=== PATIENT | male | born 1965 | race American Indian/Alaskan Native ===

== ENCOUNTER 2016-11-23 10:31 | Emergency (ER) | payer OTHER ==
[2016-11-23 10:50] VITALS: BP 160/106
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
--- NOTE | 2016-11-23 12:18 | XRay Report ---
LUMBOSACRAL SPINE, 3 VIEWS: History: Back pain Findings: The vertebral bodies, disk spaces and posterior elements are intact. No compression deformity or malalignment. The SI joints are symmetric and unremarkable. Impression: 1. No evidence for acute injury to the lumbar spine.
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
== END 2016-11-23 13:30 | disposition home or self-care (01) ==
LOC: ED 10:31
DX: M79.605 Pain in left leg (principal); R51 Headache; M54.5 Low back pain; E11.9 Type 2 diabetes mellitus without complications; J45.909 Unspecified asthma, uncomplicated
CPT/HCPCS: 70450; 72100

== ENCOUNTER 2020-12-02 14:16 | Emergency (ER) | payer SELFPAY ==
[2020-12-02 16:05] LABS: Basophils # (Auto) 0.1 K/mm3 (0.0-0.1); Basophils % (Auto) 0.7 % (0.0-1.8); Eosinophils # (Auto) 0.1 K/mm3 (0.0-0.4); Eosinophils % (Auto) 0.7 % (0.0-4.3); Hematocrit 43.7 % (35.5-45.6); Hemoglobin 14.3 gm/dl (11.8-15.2); Lymphocytes # (Auto) 1.8 K/mm3 (1.2-5.4); Lymphocytes % (Auto) 15.9 % (13.4-35.0); Mean Corpuscular HGB Conc 33 % (32-34); Mean Corpuscular Volume 93 fl (84-94); Monocytes # (Auto) 0.6 K/mm3 (0.0-0.8); Monocytes % (Auto) 5.4 % (0.0-7.3); Platelet Count 299 K/mm3 (140-440); Red Blood Count 4.72 M/mm3 (3.65-5.03); Red Cell Distribution Width 12.5 % (13.2-15.2)
[2020-12-02] MEDS ORDERED: MECLIZINE 25 MG TAB PO ONE (16:24)
[2020-12-02 16:29] LABS: Alanine Aminotransferase 25 units/L (7-56); Albumin 3.4 g/dL (3.9-5); Blood Urea Nitrogen 10 mg/dL (9-20); Calcium 8.9 mg/dL (8.4-10.2); Hemolysis Index 20
[2020-12-02 17:03] LABS: BUN/Creatinine Ratio 14
[2020-12-02] MEDS ORDERED: SODIUM CHLORIDE 0.9% 1000 ML 1,000 ML IV ONE ×2 (17:19)
[2020-12-02] MEDS ORDERED: INSULIN REGULAR, HUMAN 100 UNITS/1 ML IV ONE (17:21)
--- NOTE | 2020-12-02 17:37 | Emergency Department Report ---
ED General Adult HPI - General Chief complaint: Dizziness Stated complaint: DIZZINESS, RASH Time Seen by Provider: 12/02/20 15:31 Source: patient Mode of arrival: Ambulatory Limitations: No Limitations - History of Present Illness Initial comments: 55-year-old -[place] male patient presents with complaints of dizziness starting yesterday. He describes the dizziness as a room spinning type sensation and states it is mild. Patient denies any headache, vision changes, nausea/vomiting, recent head trauma, confusion, memory loss, numbness/tingl ing/weakness in his limbs, or difficulty with speech/ambulation. No prior history of vertigo per patient. He also denies any congestion or upper respiratory symptoms. His symptoms worsen with changes in his body position and turning his head. Past medical history includes hypertension. Patient reports his symptoms have improved since their onset -: Sudden - Related Data Previous Rx's Medication Instructions Recorded Last Taken Type hydrOXYzine HCL [Atarax] 25 mg PO Q6HR PRN #20 tablet 11/12/15 Unknown Rx methylPREDNISolone [Medrol] 4 mg PO QAM #1 dosepack 11/12/15 Unknown Rx Ibuprofen 800 mg PO Q8H PRN #20 tablet 11/23/16 Unknown Rx Meclizine [Antivert] 25 mg PO TID PRN #15 tablet 12/02/20 Unknown Rx Allergies Allergy/AdvReac Type Severity Reaction Status Date / Time codeine Allergy Unknown Verified 12/02/20 14:21 ED Review of Systems ROS: Stated complaint: DIZZINESS, RASH Other details as noted in HPI Constitutional: denies: chills, diaphoresis, fever, malaise, weakness Eyes: denies: vision change Respiratory: denies: cough, shortness of breath Cardiovascular: denies: chest pain, palpitations Gastrointestinal: denies: nausea, vomiting Neurological: denies: headache, weakness, numbness, paresthesias, confusion, abnormal gait ED Past Medical Hx - Past Medical History Hx Diabetes: Yes Hx Asthma: Yes (no meds, last attack 10 years ago) - Surgical History Additional Surgical History: Hernia repair - Social History Smoking Status: Never Smoker Substance Use Type: None - Medications Home Medications: Home Medications Medication Instructions Recorded Confirmed Last Taken Type hydrOXYzine HCL [Atarax] 25 mg PO Q6HR PRN #20 tablet 11/12/15 Unknown Rx methylPREDNISolone [Medrol] 4 mg PO QAM #1 dosepack 11/12/15 Unknown Rx Ibuprofen 800 mg PO Q8H PRN #20 tablet 11/23/16 Unknown Rx Meclizine [Antivert] 25 mg PO TID PRN #15 tablet 12/02/20 Unknown Rx ED Physical Exam - General Limitations: No Limitations General appearance: alert, in no apparent distress - Head Head exam: Present: atraumatic, normocephalic - Eye Eye exam: Present: normal appearance. Absent: scleral icterus - Neck Neck exam: Present: normal inspection, full ROM - Respiratory Respiratory exam: Present: normal lung sounds bilaterally. Absent: respiratory distress - Cardiovascular Cardiovascular Exam: Present: regular rate, normal rhythm - Extremities Exam Extremities exam: Present: full ROM - Neurological Exam Neurological exam: Present: alert, oriented X3, CN II-XII intact, normal gait. Absent: motor sensory deficit - Expanded Neurological Exam Expanded Cerebellar function: Finger to Nose: Normal, Heel to Mead: Normal, Romberg: Normal Sensory exam: Upper Extremity Light Touch: Normal, Lower Extremity Light Touch: Normal Motor strength exam: RUE: 4, LUE: 4, RLE: 4, LLE: 4 Best Eye Response ([place]): (4) open spontaneously Best Motor Response ([place]): (6) obeys commands Best Verbal Response ([place]): (5) oriented Kaci Total: 15 - Psychiatric Psychiatric exam: Present: normal affect, normal mood - Skin Skin exam: Present: warm, dry, intact, normal color. Absent: rash ED Course Vital Signs 12/02/20 12/02/20 14:21 16:31 Temperature 98.2 F Pulse Rate 98 H Pulse Rate [ 98 H Lying] Pulse Rate [ 103 H Sitting] Pulse Rate [ 110 H Standing] Respiratory 14 Rate Blood Pressure 124/84 [Lying] Blood Pressure 142/79 [Right] Blood Pressure 114/75 [Sitting] Blood Pressure 104/76 [Standing] O2 Sat by Pulse 100 Oximetry ED Medical Decision Making - Lab Data Result diagrams: 12/02/20 15:56 12/02/20 15:56 Lab Results 12/02/20 12/02/20 12/02/20 Range/Units 15:56 15:56 18:43 WBC 11.6 H (4.5-11.0) K/mm3 RBC 4.72 (3.65-5.03) M/mm3 Hgb 14.3 (11.8-15.2) gm/dl Hct 43.7 (35.5-45.6) % MCV 93 (84-94) fl MCH 30 (28-32) pg MCHC 33 (32-34) % RDW 12.5 L (13.2-15.2) % Plt Count 299 (140-440) K/mm3 Lymph % (Auto) 15.9 (13.4-35.0) % Piatt % (Auto) 5.4 (0.0-7.3) % Eos % (Auto) 0.7 (0.0-4.3) % Baso % (Auto) 0.7 (0.0-1.8) % Lymph # (Auto) 1.8 (1.2-5.4) K/mm3 Piatt # (Auto) 0.6 (0.0-0.8) K/mm3 Eos # (Auto) 0.1 (0.0-0.4) K/mm3 Baso # (Auto) 0.1 (0.0-0.1) K/mm3 Seg Neutrophils % 77.3 H (40.0-70.0) % Seg Neutrophils # 9.0 H (1.8-7.7) K/mm3 Sodium 137 (137-145) mmol/L Potassium 4.2 (3.6-5.0) mmol/L Chloride 100.6 (98-107) mmol/L Carbon Dioxide 24 (22-30) mmol/L Anion Gap 17 mmol/L BUN 10 (9-20) mg/dL Creatinine 0.7 L (0.8-1.3) mg/dL Estimated GFR > 60 ml/min BUN/Creatinine Ratio 14 % Glucose 409 H (75-100) mg/dL POC Glucose 229 H (70-105) mg/dL Calcium 8.9 (8.4-10.2) mg/dL Total Bilirubin 0.20 (0.1-1.2) mg/dL AST 26 (5-40) units/L ALT 25 (7-56) units/L Alkaline Phosphatase 119 (35-129) units/L Troponin T 0.017 (0.00-0.029) ng/mL Total Protein 7.0 (6.3-8.2) g/dL Albumin 3.4 L (3.9-5) g/dL Albumin/Globulin Ratio 0.9 % - EKG Data EKG shows normal: sinus rhythm Rate: normal - EKG Data Interpretation: normal EKG - Medical Decision Making 55-year-old -[place]aro[place] male patient presents with complaints of dizziness starting yesterday. He describes the dizziness as a room spinning type sensation and states it is mild. Patient denies any headache, vision changes, nausea/vomiting, recent head trauma, confusion, memory loss, numbness/tingling/weakness in his limbs, or difficulty with speech/ambulation. No prior history of vertigo per patient. He also denies any congestion or upper respiratory symptoms. His symptoms worsen with changes in his body position and turning his head. Past medical history includes hypertension. Patient reports his symptoms have improved since their onset Neuro exam is normal. Symptoms appear to be consistent with vertigo. Patient given meclizine and states his dizziness has completely resolved. Labs show zac vated glucose of 409. Patient states compliance with his home diabetic medications. He was given 2 L of normal saline and 8 units of IV insulin. Glucose is now 233. Discussed importance of glucose control with diet and exercise. Patient states he is feeling well and denies any further symptoms. His vitals are within normal limits. He is stable for discharge home. Meclizine given for home. Patient to follow-up with his PCP within 3 to 5 days. Discussed in detail signs and symptoms that should prompt immediate return to the ED with patient who verbalizes understanding. Critical care attestation.: If time is entered above; I have spent that time in minutes in the direct care of this critically ill patient, excluding procedure time. ED Disposition Clinical Impression: Dizziness Disposition: 01 HOME / SELF CARE / HOMELESS Is pt being admited?: No Instructions: Dizziness, Benign Positional Vertigo Prescriptions: Meclizine [Antivert] 25 mg PO TID PRN #15 tablet PRN Reason: Vertigo Referrals: PRIMARY CARE, [Referring] - 3-5 Days
[2020-12-02 20:20] VITALS: BP 141/88
--- NOTE | 2020-12-03 17:37 | Electrocardiograph Report ---
[facility] Test Date: 2020-12-02 Test Time: 14:25:30 Pat Name: RADHA REYES Department: Room: Gender: M Letter Of Credit Clerk: TV : 1965 Requested By: RONNELL LEWIS Order Number: [id number] Reading MD: Jose Chauhan Measurements Intervals [place] Rate: 91 P: 81 MS: 148 QRS: 55 QRSD: 71 T: 32 QT: 351 QTc: 433 Interpretive Statements Sinus rhythm Low voltage, precordial leads No previous ECG available for comparison Electronically Signed On 12-03-2020 17:37:16 EDT by Jose Chauhan
== END 2020-12-02 20:20 | disposition home or self-care (01) ==
LOC: ED 14:16
DX: R42 Dizziness and giddiness (principal); Z88.5 Allergy status to narcotic agent; E11.8 Type 2 diabetes mellitus with unspecified complications; J45.909 Unspecified asthma, uncomplicated
CPT/HCPCS: 36415; 80053; 82962; 84484; 85025; 93005; 96361; 96374; 99283; J7030; J1815